=== PATIENT | male | born 1980 | race Hispanic/Latino ===

== ENCOUNTER 2018-08-27 21:53 | Emergency (ER) | payer SELFPAY | END 2018-08-27 22:56 | disposition home or self-care (01) | LOC: NAV ERS 21:53 | DX: K08.89 Other specified disorders of teeth and supporting structures (principal); J45.909 Unspecified asthma, uncomplicated; Z79.2 Long term (current) use of antibiotics; Z79.899 Other long term (current) drug therapy | CPT/HCPCS: 99281 ==